=== PATIENT | male | born 1965 | race Caucasian/White ===

== ENCOUNTER → 2017-02-04 | Outpatient (CLI) | payer BC ==
[~2017-02-04] MED LIST: BACTRIM DS 8001 TAB PO; LISINOPRIL/HCTZ1 TA1 PO; MELOXICAM15 MG PO; PERCOCET 325 MG1 TA3 PO
--- NOTE | 2017-02-05 12:36 | RADIOLOGY REPORT PS360 ---
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 FINDINGS: No midline shift, mass effect, intracranial hemorrhage, or hydrocephalus. Small areas of cystic encephalomalacia are present in the head of the left caudate, left basal ganglia, left cody radiata and the right aspect of the genu of the corpus callosum. This could be due to old lacunar infarctions. No evidence of restricted diffusion. An old small area of cystic encephalomalacia is also present in the inferior aspect of the right cerebellar hemisphere. Small area of increased T2 and FLAIR signal present in the left centrum semiovale posteriorly and in the left aspect of the thalamus. These do not show or strictured diffusion consistent with small chronic lacunar infarctions. Is a small area of slight restricted diffusion in the right basal ganglia posteriorly suggesting a small acute or subacute lacunar infarction. Cerebellopontine angles, cerebellum, and brainstem are unremarkable. No mastoid effusion. There is mucosal thickening of the ethmoid sinuses and left frontal sinus. IMPRESSION: 1. Scattered areas of cystic encephalomalacia consistent with remote lacunar infarctions. Chronic changes from multiple sclerosis felt to be less likely. 2. Small area of slightly restricted diffusion in the right posterior basal ganglia showing increased diffusion signal and slight decrease ADC signal and may be due to a subacute area of lacunar infarction. 3. Ethmoid sinus disease
--- NOTE | 2017-02-05 12:40 | RADIOLOGY REPORT PS360 ---
MRA-HEAD W/O CLINICAL INDICATION: CVA DUE TO STENOSIS OF LEFT MIDDLE CEREBRAL ARTERY ORDERING PHYSICIAN: Fidel Felton MD PATIENT AGE: 51 years TECHNIQUE: 3-D [id number] images without contrast with MIP reformats COMPARISON: None FINDINGS: No aneurysms or arteriovenous malformation is evident. No major intracranial occlusive process evident. There is mild degree of motion artifact which does somewhat obscure fine detail. There however does appear to be high-grade stenosis versus occlusion of the proximal aspect of the M1 segment of the left middle cerebral artery. No other occlusive changes apparent. Basilar artery and posterior cerebral arteries are patent. Single shot MRV images unremarkable IMPRESSION: 1. High-grade stenosis versus occlusion of the proximal aspect of the left M1 segment of the middle cerebral artery 2. No aneurysm or arterial venous malformation apparent
--- NOTE | 2017-02-05 12:40 | RADIOLOGY REPORT PS360 ---
MRA-HEAD W/O CLINICAL INDICATION: CVA DUE TO STENOSIS OF LEFT MIDDLE CEREBRAL ARTERY ORDERING PHYSICIAN: Fidel Felton MD PATIENT AGE: 51 years TECHNIQUE: 3-D [id number] images without contrast with MIP reformats COMPARISON: None FINDINGS: No aneurysms or arteriovenous malformation is evident. No major intracranial occlusive process evident. There is mild degree of motion artifact which does somewhat obscure fine detail. There however does appear to be high-grade stenosis versus occlusion of the proximal aspect of the M1 segment of the left middle cerebral artery. No other occlusive changes apparent. Basilar artery and posterior cerebral arteries are patent. Single shot MRV images unremarkable IMPRESSION: 1. High-grade stenosis versus occlusion of the proximal aspect of the left M1 segment of the middle cerebral artery 2. No aneurysm or arterial venous malformation apparent
== END ==
LOC: RAD 10:10
DX: I63.512 Cerebral infarction due to unspecified occlusion or stenosis of left middle cerebral artery (principal)